=== PATIENT | female | born 1995 | race Caucasian/White ===

== ENCOUNTER → 2018-02-20 08:31 | Outpatient (CLI) | payer OTHER, SELFPAY ==
[2018-02-20 10:43] LABS: ALB/GLOB Ratio 1.1 RATIO (0.9-2.4); AST(SGOT) 23 U/L (15-37); Alanine Aminotransfer ALT/SGPT 42 U/L (13-56); Albumin, Serum 3.8 g/dL (3.2-5.0); Alkaline Phosphatase 67 U/L (45-117); Anion Gap 7 (5-15); BUN 10 mg/dL (7-18); BUN/Creat Ratio 13.4 RATIO (10-20); Calcium,Total 8.8 mg/dL (8.5-10.1); Chloride 104 mmol/L (98-107); Creatinine, Serum 0.75 mg/dL (0.55-1.02); EST Glomerular Filtration Rate 104 mL/min (>60); Est Glom Filt Rate - Afr Amer 126 mL/min (>60); Globulin 3.5 g/dL (2.2-4.2); Glucose 90 mg/dL (74-106); Potassium 3.9 mmol/L (3.5-5.1); Protein, Total 7.3 g/dL (6.4-8.2); Sodium Level 139 mmol/L (136-145)
[2018-02-20 12:38] LABS: Hematocrit 45.6 % (37-47); Hemoglobin 15.1 g/dl (12.0-15.0); Mean Corp Hgb Conc 33.1 g/gl (32-36); Mean Corpuscular Hgb 29.8 pg (27.0-32.0); Mean Corpuscular Volume 89.9 fL (81-99); Mean Platelet Vol. 10.8 fl (6.2-12.0); Platelet Count 274 K/mm3 (150-450); RBC Distribution Width CV 12.6 % (11.6-14.6); RBC Distribution Width SD 40.6 fl (35.1-43.9); Red Blood Count 5.07 M/mm3 (4.2-5.4); White Blood Count 5.6 K/mm3 (4.4-11.0)
[2018-02-20 12:46] LABS: Scan Indicated on CBC? Y/N NO
[2018-02-26 14:07] LABS: HEPATITIS B SURFACE AG Negative (Negative); Hepatitis A AB, Total Positive (Negative); Hepatitis A IgM Antibody Negative (Negative); Hepatitis B Core AB IgM Negative (Negative); Hepatitis B Core Ab Total Negative (Negative); Hepatitis C Ab 0.1 s/co ratio (0.0-0.9); QNTFERON TB Ag Minus Nil Value 0 IU/mL (.); QNTFERON TB Ag Value 0.05 IU/mL (.); QNTFERON TB Mitogen Value > 10.00 IU/mL (.); QNTFERON TB Nil Value 0.05 IU/mL (.)
[2018-02-26 14:55] LABS: Hep B Surface Antibodies Non Reactive (.); QNTIFERON TB Gold Negative (Negative)
== END ==
PROVIDERS: Family Provider Family Medicine; PCP Family Medicine; Visit Provider Dermatology Pediatric Dermatology
DX: L40.0 Psoriasis vulgaris (principal)
CPT/HCPCS: 36415; 80053; 85027; 86480; 86704; 86705; 86706; 86708; 86709; 86803; 87340

== ENCOUNTER → 2018-02-28 09:04 | Outpatient (CLI) | payer OTHER, SELFPAY ==
[2018-03-01 16:07] LABS: t-Transglutaminase IgA <2 U/mL (0-3)
== END ==
PROVIDERS: Visit Provider Dermatology Pediatric Dermatology
DX: L40.0 Psoriasis vulgaris (principal); D22.5 Melanocytic nevi of trunk; Z79.899 Other long term (current) drug therapy
CPT/HCPCS: 36415; 83516

== ENCOUNTER → 2018-06-13 08:48 | Outpatient (CLI) | payer OTHER, SELFPAY | PROVIDERS: Family Provider Family Medicine; PCP Family Medicine; Visit Provider Obstetrics & Gynecology | DX: J03.00 Acute streptococcal tonsillitis, unspecified (principal) | CPT/HCPCS: 87880 ==

== ENCOUNTER → 2018-10-01 08:57 | Outpatient (CLI) | payer OTHER, SELFPAY ==
[2018-07-26 16:10] VITALS: BMI 22.6
[2018-10-01 10:40] LABS: Erythrocyte Sedimentation Rate 2 mm/hr (0-20)
[2018-10-01 10:43] LABS: Absolute Lymphocyte Count 1.84 X10^3/ul (0.83-4.51); Absolute Neutrophil Count 4.4 X10^3/uL (2.0-7.7); Basophil# 0.02 X10^3/uL; Basophil% 0.3 % (0-1); Eosinophil# 0.07 X10^3/uL; Hematocrit 43.6 % (37-47); Hemoglobin 14.3 g/dl (12.0-15.0); Lymphocyte # 1.84 X10^3/ul (4.0); Lymphocyte % 27.4 % (19-41); Mean Corp Hgb Conc 32.8 g/gl (32-36); Mean Corpuscular Hgb 29.8 pg (27.0-32.0); Mean Corpuscular Volume 90.8 fL (81-99); Mean Platelet Vol. 10.6 fl (6.2-12.0); Neutrophil # 4.38 X10^3/uL (2.7-7.7); Neutrophil % 65.2 % (47-70); POSITIVE COUNT NO; POSITIVE DIFFERENTIAL NO; POSITIVE MORPHOLOGY NO; Platelet Count 251 K/mm3 (150-450); RBC Distribution Width CV 12.2 % (11.6-14.6); RBC Distribution Width SD 40.9 fl (35.1-43.9); White Blood Count 6.7 K/mm3 (4.4-11.0)
[2018-10-01 11:06] LABS: ALB/GLOB Ratio 1.3 RATIO (0.9-2.4); AST(SGOT) 21 U/L (15-37); Alanine Aminotransfer ALT/SGPT 30 U/L (13-56); Albumin, Serum 3.9 g/dL (3.2-5.0); Alkaline Phosphatase 80 U/L (45-117); Anion Gap 10 (5-15); BUN 6 mg/dL (7-18); BUN/Creat Ratio 8.2 RATIO (10-20); Calcium,Total 8.6 mg/dL (8.5-10.1); Chloride 103 mmol/L (98-107); Creatinine, Serum 0.73 mg/dL (0.55-1.02); EST Glomerular Filtration Rate 106 mL/min (>60); Est Glom Filt Rate - Afr Amer 128 mL/min (>60); Glucose 92 mg/dL (74-106); Potassium 3.7 mmol/L (3.5-5.1); Protein, Total 6.9 g/dL (6.4-8.2); Sodium Level 141 mmol/L (136-145); Thyroid Stim Hormone (TSH) 0.69 uIU/mL (0.358-3.74)
[2018-10-02 20:07] LABS: Endomysial Antibody IgA Negative (Negative)
[2018-10-03 11:56] LABS: Deamidated Gliadin IgA 3 units (0-19); Deamidated Gliadin IgG 2 units (0-19)
[2018-10-03 11:57] LABS: Immunoglobulin A 131 mg/dL (87-352); t-Transglutaminase IgA <2 U/mL (0-3)
[2018-10-05 03:07] LABS: Alternaria alternata <0.10 kU/L (Class 0); Aspergillus fumigatus <0.10 kU/L (Class 0); Bahia Grass <0.10 kU/L (Class 0); Bermuda Grass <0.10 kU/L (Class 0); Bluegrass, Kentucky <0.10 kU/L (Class 0); Cat Hair/Dander, Standard <0.10 kU/L (Class 0); Cedar, Mountain <0.10 kU/L (Class 0); Cladosporium herbarum <0.10 kU/L (Class 0); Cockroach, American <0.10 kU/L (Class 0); D farinae Mite <0.10 kU/L (Class 0); D pteronyssinus <0.10 kU/L (Class 0); Dog Epithelia <0.10 kU/L (Class 0); Elm, American White <0.10 kU/L (Class 0); Hazelnut Tree <0.10 kU/L (Class 0); Hickory, White <0.10 kU/L (Class 0); Johnson Grass <0.10 kU/L (Class 0); Maple/Box Elder <0.10 kU/L (Class 0); Mucor racemosus <0.10 kU/L (Class 0); Mugwort <0.10 kU/L (Class 0); Mulberry, White <0.10 kU/L (Class 0); Oak, White <0.10 kU/L (Class 0); Penicillium chrysogen <0.10 kU/L (Class 0); Pigweed, Rough <0.10 kU/L (Class 0); Plantain, English <0.10 kU/L (Class 0); Ragweed, Short/Common <0.10 kU/L (Class 0); Sheep Sorrel(Dock) <0.10 kU/L (Class 0); Stemphylium herbarum <0.10 kU/L (Class 0); Sweet Gum <0.10 kU/L (Class 0); Sycamore, American <0.10 kU/L (Class 0)
[2018-10-05 08:23] LABS: Nettle <0.10 kU/L (Class 0)
== END ==
PROVIDERS: Family Provider Family Medicine; PCP Family Medicine; Visit Provider Family Medicine
DX: R10.9 Unspecified abdominal pain (principal)
CPT/HCPCS: 36415; 80053; 82784; 83516; 84443; 85025; 85652; 86003; 86255

== ENCOUNTER 2019-08-20 12:24 | Emergency (ER) | payer OTHER, SELFPAY ==
[2019-05-30 17:45] VITALS: BMI 22.6
[2019-08-20 12:26] VITALS: BP 149/106; PULSE 82; RESP 18; TEMP 36.4; O2SAT 98; BMI 26.1
--- NOTE | 2019-08-20 12:52 | CT_ITS ---
STUDY: CT BRAIN WITHOUT CONTRAST REASON FOR EXAM: Female, 23 years old. MIGRAINE X5 DAYS RADIATION DOSAGE (If Supplied By Facility): CTDIvol = ( 60.81 ) mGy, DLP = ( 1044.28 ) mGycm TECHNIQUE: Transaxial CT imaging of the brain was performed without administration of intravenous contrast material. Individualized dose optimization techniques were used for this CT. COMPARISON: No relevant priors. FINDINGS: Normal soft tissue structures. Normal calvarium. Normal size ventricles and extra-axial spaces for the patient''s age. Normal white matter tracts of the cerebral hemispheres. Normal basal ganglia and thalami. Normal brainstem. Normal cerebellum. There is no intracranial hemorrhage. There are no findings of an acute ischemic infarction. Minimal mucosal thickening of the posterior maxillary sinuses bilaterally. CT/Brain/Head without Contrast IMPRESSION: Normal unenhanced CT scan of the brain. Electronically Signed: Kurt Nance, at 13:33 EST , Service support ,
--- NOTE | 2019-08-20 12:54 | ED.DCSUM_ITS ---
- ER Visit Summary Date of Service: 08/20/19 Chief Complaint: Diffuse headache History of Present Illness: The patient is a 23 F history of anxiety and 2 prior concussions. States she is never had a CAT scan. States 5 days ago on Monday a gradual onset of a diffuse headache. States is over her entire head. Denies any fall or trauma. She is on no blood thinners. There is no family history of intracranial bleeds or aneurysms. This was not a thunderclap headache. She denies any fever, neck pain or sinus congestion or drainage. She lives with her boyfriend and he is not having headaches. There is no history of carbon monoxide exposure. She currently is not . Physical Examination: Young female no acute distress vital signs are stable afebrile. H EENT exam unremarkable. Pupils round react to light extra motions are intact. There is no frontal maxillary sinus tenderness. No facial droop. No signs of trauma. Normal speech. Neck nontender. No lymphadenopathy. Normal range of motion. No meningismus. Lungs clear to auscultation bilaterally. Heart regular rhythm no murmur. Abdomen soft nontender normal bowel sounds no peritoneal signs. Remedies moves all 4. Neurovascular intact. She has normal special educator strength bilaterally. Normal dorsi plantarflexion. Neurologic exam normal. NIH is 0. Fingertip to nose [id number] within normal limits. She got up walk to the door without any difficulty. No ataxia. Negative Romberg. Test Results: CAT scan of the brain shows no acute abnormality read by the radiologist and reviewed by me. Emergency Department Course and Treatment: Patient has acute headache in the last 5 days. Treated with IV Toradol, Benadryl, Phenergan and IV fluids. Repeat exam and 1426 patient's neuro exam remains normal. Her headache is almost completely resolved after medications. I discussed with her and her mom the CAT scan results and outpatient follow-up. Treatment Plan: Follow-up with your doctor. Fluids and rest. Tylenol and Motrin. Her primary care physician is also getting her a neurology evaluation. Disposition: Discharge Impression: Acute headache of uncertain etiology This note was generated with [employer] software. It may contain incorrect words, spelling, and punctuation that were not noted in review of the chart prior to signing ED Disposition - Plan for ED Patient: Referrals: Kishan Raymundo MD [Primary Care Provider] -
[2019-08-20] MEDS: 0.9% Normal Saline 1,000 ML 999 ML IV (13:04)
[2019-08-20] MEDS: proMETHazine 25 MG/ML Syringe 12.5 MG IV (13:04)
[2019-08-20] MEDS: Ketorolac 30 MG/ML Syringe IV (13:04)
[2019-08-20] MEDS: DiphenhydrAMINE 50 MG/ML Syringe 25 MG IV (13:05)
--- NOTE | 2019-08-20 14:36 | ED.DEP ---
ED Disposition - Plan for ED Patient: Disposition: Home or Assisted Living Instructions: HEADACHE, Unspecified Referrals: Kishan Raymundo MD [Primary Care Provider] - As Needed Additional Instructions: Follow-up with your neurology evaluation. If recurrent headaches use Tylenol and/or Motrin. Return to the emergency department if severe headache and unable to get improving. Or if you develop neurological symptoms such as weakness or problems with your speech. Today your CAT scan was read as normal. And you had a normal neurologic exam.
[2019-08-20 14:45] VITALS: BP 115/84; PULSE 73; RESP 16; O2SAT 98
--- NOTE | 2019-08-20 14:45 | ED.RN ---
REVIEWED D/C INSTRUCTIONS, FOLLOW UP CARE, AND S/S THAT WOULD WARRANT A RETURN TO THE ED WITH PT. PT VERBALIZED AN UNDERSTANDING AND DENIES FURTHER QUESTIONS FOR THIS RN. PT SKIN P/W/D, RESP EVEN AND UNLABORED, PT A&O X 3, NO DISTRESS NOTE.D PT AMBULATED OUT OF ED, GAIT STEADY.
== END 2019-08-20 14:47 | disposition home or self-care (01) ==
PROVIDERS: Emergency Provider Emergency Medicine; PCP Family Medicine
DX: R51 Headache (principal); F41.9 Anxiety disorder, unspecified
CPT/HCPCS: 70450; 96361; 96374; 96375; 99283; J7030; A4216

== ENCOUNTER → 2019-08-27 07:08 | Outpatient (CLI) | payer OTHER, SELFPAY ==
[2019-08-20 12:26] VITALS: BMI 26.1
--- NOTE | 2019-08-27 07:19 | MRI_ITS ---
STUDY: MRI BRAIN WITH AND WITHOUT CONTRAST REASON FOR EXAM: Female, 23 years old. papilledema, headache, vision changes x 1 1/2 wks TECHNIQUE: Standardized multiplanar fat and water weighted pulse sequences were obtained. IV Dotarem 13ml was administered for the contrast portion of the examination. COMPARISON: CT head 08/20/2019. FINDINGS: Normal size of the ventricles and extra-axial spaces for the patient''s age. Normal white matter tracts of the supratentorial brain. There is no evidence for recent intracranial ischemia or other cause of cytotoxic edema on diffusion weighted imaging (DWI). Normal T2* images of the brain without demonstrated susceptibility artifact. There is no demonstrated hemosiderin stain. Normal bilateral basal ganglia. Normal thalami. There is no extra-axial fluid accumulation. Normal flow voids within the major intracranial circulation suggesting patency by spin echo criteria. Normal venous enhancement. There is no enhancing intra-axial or extra-axial abnormality. Normal sella turcica, pituitary gland, infundibular stalk, optic chiasm and hypothalamus. Normal tectal plate and pineal gland. Normal midbrain, rinku and medulla. Normal cerebellum. Normal basal cisterns. Normal bilateral temporal bones. Normal bilateral internal auditory canals. No demonstrated orbital abnormality, within the constraints of a routine brain study. There is no enhancing orbital pathology. Normal optic nerves and extraocular muscles. Normal visualized paranasal sinuses. Normal calvarium and skull base. Normal visualized soft tissue structures. Normal visualized upper cervical spine. MRI/Brain W/WO Contrast IMPRESSION: Normal unenhanced and enhanced MRI of the brain and orbits. Electronically Signed: Dinh Foley, at 15:46 EST Tel , Service support ,
== END ==
PROVIDERS: PCP Family Medicine
DX: H47.10 Unspecified papilledema (principal)
CPT/HCPCS: 70553; A9575

== ENCOUNTER 2019-08-27 18:51 | Emergency (ER) | payer OTHER, SELFPAY ==
[2019-08-27 18:51] VITALS: BP 131/91; PULSE 101; RESP 18; TEMP 37; O2SAT 95
[2019-08-27 18:52] VITALS: BP 131/91; PULSE 101; RESP 18; TEMP 37; O2SAT 95; BMI 25.9
--- NOTE | 2019-08-27 20:38 | CT_ITS ---
MADRID X 5 DAYS WITH VISUAL DISTURBANCES, PT HAD CT BRAIN ON THE AND MRI BRAIN TODAY BOTH NORMAL TECHNIQUE: Noncontrast axial images were obtained of the brain. Subsequently, routine carotid CT angiogram protocol was performed without and with IV contrast. In addition, images were obtained of the [place]. A radiation dose optimization technique was used for this scan. IV Contrast dosage and agent: 100mL Isovue-370 IV 100mL Isovue-370 COMPARISON: MR brain 08/27/[address] 08/20/2019 FINDINGS: --CT BRAIN without contrast Stable exam. Normal ventricles. Normal pineda-white matter differentiation. No intracranial mass, hemorrhage, or acute parenchymal abnormality. No suspicious extra-axial fluid collection. --CTA NECK: AORTIC ARCH AND BRANCHES: Normal anatomy, patent. RIGHT CCA: No occlusion, significant stenosis or dissection. RIGHT ICA: No occlusion, significant stenosis or dissection. LEFT CCA: No occlusion, significant stenosis or dissection. LEFT ICA: No occlusion, significant stenosis or dissection. RIGHT VERTEBRAL ARTERY: No occlusion, significant stenosis or dissection. LEFT VERTEBRAL ARTERY: No occlusion, significant stenosis or dissection. NECK SOFT TISSUES: Negative --CTA HEAD: Normal flow and patency of the vertebrobasilar and carotid systems. Normal bilateral filling of the anterior, middle, and posterior cerebral arteries. No arterial occlusion or arterial dissection. No evidence of intracranial aneurysm or vascular malformation. CT/CTA Head AND Neck W/ Contrast IMPRESSION: 1. Normal CTA bilateral carotids and bilateral vertebral arteries. 2. Normal CTA [place] and brain. No acute disease or intracranial aneurysm. Individualized dose optimization techniques were used for this CT. at 2324 Reported and signed by: Ronnie Talbot MD Electronically Signed: Ronnie Talbot, at 23:23 EST Tel , Service support ,
[2019-08-27 22:17] LABS: Absolute Lymphocyte Count 3.19 X10^3/uL (0.83-4.51); Absolute Neutrophil Count 6.7 X10^3/uL (2.0-7.7); Basophil# 0.09 X10^3/uL; Basophil% 0.8 % (0-1); Eosinophil# 0.05 X10^3/uL; Eosinophils% 0.5 % (0-5); Hematocrit 42.7 % (37-47); Hemoglobin 14.1 g/dL (12.0-15.0); Lymphocyte # 3.19 X10^3/ul (4.0); Lymphocyte % 29.1 % (19-41); Mean Corpuscular Hgb 29.6 pg (27.0-32.0); Mean Corpuscular Volume 89.7 fL (81-99); Monocyte# 0.73 X10^3/uL; Monocyte% 6.6 % (0-10); NRBC Flagged by Analyzer 0 % (0-5); Neutrophil # 6.67 X10^3/uL (2.7-7.7); Neutrophil % 60.7 % (47-70); Platelet Count 186 K/mm3 (150-450); RBC Distribution Width CV 12.7 % (11.6-14.6); RBC Distribution Width SD 41.1 fl (35.1-43.9); Red Blood Count 4.76 M/mm3 (4.2-5.4)
[2019-08-27] MEDS: 0.9% Normal Saline 1,000 ML 999 ML IV (22:17)
[2019-08-27] MEDS: DiphenhydrAMINE 50 MG/ML Syringe 25 MG IV ×2 (22:20→22:54)
[2019-08-27] MEDS: Ketorolac 30 MG/ML Syringe IV (22:20)
[2019-08-27] MEDS: proCHLORPERazine 10 MG/2 ML Vial IV (22:20)
[2019-08-27 22:23] VITALS: BP 125/81; PULSE 72; RESP 18; O2SAT 97
[2019-08-27 22:30] LABS: Anion Gap 6 (5-15); BUN 14 mg/dL (7-18); Calcium,Total 8.5 mg/dL (8.5-10.1); Chloride 103 mmol/L (98-107); Creatinine, Serum 0.74 mg/dL (0.55-1.02); EST Glomerular Filtration Rate 104 mL/min (>60); Est Glom Filt Rate - Afr Amer 126 mL/min (>60); Estimated Creatinine Clearance 102.97 ml/min; Glucose 88 mg/dL (74-106); Potassium 3.3 mmol/L (3.5-5.1); Sodium Level 138 mmol/L (136-145)
[2019-08-27 22:39] LABS: Prothrombin Time (Protime)PT. 12.6 SECONDS (11.7-14.9)
--- NOTE | 2019-08-27 23:33 | ED.VIS.HA ---
History of Present Illness Chief Complaint: Headache Informant: Patient, Family Narrative: Patient is a 23-year-old female present with headaches. Patient is had headaches for the past 1/2 weeks continuously. Patient has had multiple visits to the ER, her PCP and her industrial health and safety professor. Patient has received a migraine cocktail which did improve her symptoms. Her industrial health and safety professor saw papilledema and ordered an MRI of her head. This was negative. She had negative CT without contrast per the ER. Her industrial health and safety professor was concerned about possible pseudotumor cerebri. Patient is on immunosuppressant for psoriasis. She is also currently on a prednisone taper as well as her venlafaxine and BuSpar. She describes her headache as throbbing and diffuse. I does not seem to be affected by position or light. She feels a whooshing noise in her ears. She has associated nausea with no vomiting. She not had any associated fever or neck pain. She sometimes her vision is blurry and she does see spots. She has also been prescribed sumatriptan does not help. She has appointment to see Dr. Caceres, neurology on October 01. She is presenting with her mother because they do not know what else to do and she is continued to be disabled from her headaches. Past Medical History - Allergies and Home Meds Allergies/Adverse Reactions: Allergies dupilumab [From [facility]] Allergy (Mild, Verified 08/20/19 12:29) [facility] Primary Care Physician: Kishan Raymundo MD [Primary Care Provider] - Past Medical History: - - Depression Surgical History: noncontributory Smoking Status: Never smoker Review of Systems General: Denies: Chills, Fever, Sweats Eyes: Denies: Visual changes - bilaterally, Diplopia ENT: Denies: Rhinorrhea, Sore throat Cardiovascular: Denies: Chest pain, Palpitations Respiratory: Denies: Dyspnea, Cough, Dyspnea on exertion Gastrointestinal: Denies: Abdominal pain, Nausea, Vomiting, Diarrhea, Melena, Hematochezia Genitourinary: Denies: Dysuria, Hematuria, Frequency Musculoskeletal: Denies: Back pain, Extremity Pain Skin: Denies: Rash, Wounds Neurological: Reports: Headache. Denies: Weakness, Numbness Physical Exam Vital Signs/Narrative: Vital Signs Pulse Resp BP Pulse Ox 08/27/19 22:23 72 18 125/81 H 97 Inital Vital Signs reviewed: Yes General: Well nourished, Well developed Head: NC, AT Eyes: Perrl, EOMI ENT: Moist mucous membranes, No rhinorrhea, TM's clear Neck: Supple, No Lymphadenopathy, No JVD, Nontender, No Meningismus Cardiovascular: Regular rate, Regular rhythm, No murmurs Respiratory: No distress, CTA bilaterally, Chest nontender Abdomen: Soft, Nontender, Nondistended, Normal bowel sounds Back: Nontender, Normal Inspection Extremities: Nontender, No edema Skin: Normal color, No rash Neuro: Alert, Oriented x3, Cranial nerves II-XII grossly intact, Normal Strength, Normal Sensation, Normal DTR, Normal Gait Psychological: Normal affect Diagnostic/Tx/Re-eval Clinical Impression(s) from Imaging Studies Head/Neck CTA 08/27/19 20:38 IMPRESSION: 1. Normal CTA bilateral carotids and bilateral vertebral arteries. 2. Normal CTA [place] and brain. No acute disease or intracranial aneurysm. Individualized dose optimization techniques were used for this CT. at 2324 Reported and signed by: Ronnie Talbot MD Electronically Signed: Ronnie Talbot, at 23:23 EST Tel , Service support , Laboratory Data 08/27/19 08/27/19 08/27/19 22:04 22:04 22:20 WBC 11.0 RBC 4.76 Hgb 14.1 Hct 42.7 MCV 89.7 MCH 29.6 MCHC 33.0 RDW Std Deviation 41.1 RDW Coeff of Cynthia 12.7 Plt Count 186 MPV 10.0 Immature Gran % (Auto) 2.300 H Neut % (Auto) 60.7 Lymph % (Auto) 29.1 [place] % (Auto) 6.6 Eos % (Auto) 0.5 Baso % (Auto) 0.8 Absolute Neuts (auto) 6.7 Absolute Lymphs (auto) 3.19 Nucleated RBC % 0 PT 12.6 INR 1.0 Sodium 138 Potassium 3.3 L Chloride 103 Carbon Dioxide 29.0 Anion Gap 6 BUN 14 Creatinine 0.74 Estim Creat Clear Calc 102.97 Est GFR (MDRD) Af Amer 126 Est GFR (MDRD) Non-Af 104 BUN/Creatinine Ratio 19.0 Glucose 88 Calcium 8.5 - Medical Decision Making Patient is evaluated for recurrent headache. Has been going on for the past 1-1/2 weeks. Patient does complain of some intermittent vision changes. She had a normal MRI and CT without contrast. She has had reported papilledema on her ophthalmologic exam. Patient is a normal neurologic exam for me. She is hemodynamically stable. Patient does not had evaluation of her head and neck arteries I did order a CTA for looking for further cause of her headache and possible aneurysm. This was negative. Patient is already had an MRI with contrast. We do not have a protocol for CT venogram but I feel like an MRI with contrast should have essentially ruled out dural venous thrombosis is another cause of her headaches. There was a delay in obtaining IV access because patient was a difficult stick. Ultimately I had to perform an ultrasound-guided IV. Patient tolerated this well. She is treated with Compazine and Benadryl. Patient has a cough of acutely anxious for going over a CT of not sure if this is a side effect of the Compazine or just anxiety. She is given an additional 25 mg of Benadryl and has improvement. CTA is grossly normal. On reevaluation patient is feeling much improved. She states her headache is down to 2. She is given a dose of IV valproic acid for further headache relief. She is counseled that at this time I do not think an LP is emergently indicated. I do not suspect meningitis at this time. I think further evaluation for pseudotumor cerebri would be more appropriate with neurology. Patient has appointment to see a new neurologist in 2 days. Patient is otherwise well-appearing I do think she is stable for further outpatient evaluation. Patient is counseled on signs and symptoms requiring return to the emergency room. Patient verbalizes agreement and understand this plan. Patient discharged home in stable and improved condition. ED Disposition - Plan for ED Patient: Disposition: Home or Assisted Living Diagnosis: Headache Instructions: HEADACHE, Unspecified Referrals: Kishan Raymundo MD [Primary Care Provider] - Additional Instructions: Your work-up was normal today. I cannot find an emergent cause of your headache. I do encourage you to continue follow-up with neurology for further evaluation of this.
[2019-08-28] VITALS: BP 117/82; PULSE 86; RESP 16; O2SAT 96
== END 2019-08-28 01:16 | disposition home or self-care (01) ==
PROVIDERS: Emergency Provider Emergency Medicine; PCP Family Medicine
DX: R51 Headache (principal); F32.9 Major depressive disorder, single episode, unspecified
CPT/HCPCS: 70496; 70498; 80048; 85025; 85610; 96361; 96365; 96375; 99285; J7030; Q9967; A4216

== ENCOUNTER → 2019-09-12 07:24 | Outpatient (CLI) | payer OTHER, SELFPAY ==
[2019-09-05 11:53] VITALS: BMI 25.6
--- NOTE | 2019-09-12 07:26 | MRI_ITS ---
STUDY: EXAMINATION - MRV BRAIN WITHOUT CONTRAST REASON FOR EXAM: Female, 23 years old. HEADACHE, BENIGN INTRACRANIAL HYPERTENSION TECHNIQUE: 3D qwxm-vs-itjlso (TOF) imaging was performed in a 1.5 humberto MRI scanner. COMPARISON: None. FINDINGS: Normal flow within the superior sagittal sinus. Normal flow within the superficial cortical veins. Normal flow within the paired internal cerebral veins, vein of [place] and straight sinus. The superior sagittal sinus primarily drains into the right transverse sinus. The straight sinus drains primarily into the left transverse sinus. There is signal loss within the distal aspect of the transverse sinuses bilaterally worrisome for venous sinus stenosis seen in idiopathic intracranial hypertension (pseudotumor cerebra) (. Normal flow within the bilateral jugular bulbs. MRI/MRV Head Without Contrast IMPRESSION: Suspect venous sinus stenosis of the distal transverse sinuses bilaterally seen in idiopathic intracranial hypertension (pseudotumor cerebri). Electronically Signed: Gibran Quiroga MD at 8:41 EST Tel , Service support ,
== END ==
PROVIDERS: PCP Family Medicine; Referring Provider Psychiatry & Neurology Neurology; Visit Provider Psychiatry & Neurology Neurology
DX: G93.2 Benign intracranial hypertension (principal)
CPT/HCPCS: 70544

== ENCOUNTER → 2019-12-03 16:55 | Outpatient (CLI) | payer OTHER, SELFPAY ==
[2019-10-03 09:27] VITALS: BMI 25.6
[2019-12-03 17:28] LABS: Absolute Lymphocyte Count 1.81 X10^3/uL (0.83-4.51); Absolute Neutrophil Count 3.7 X10^3/uL (2.0-7.7); Basophil# 0.03 X10^3/uL; Basophil% 0.5 % (0-1); Eosinophils% 1.6 % (0-5); Hemoglobin 13.5 g/dL (12.0-15.0); Lymphocyte # 1.81 X10^3/ul (4.0); Lymphocyte % 29.8 % (19-41); Mean Corp Hgb Conc 33.8 g/dL (32-36); Mean Corpuscular Hgb 29.7 pg (27.0-32.0); Mean Corpuscular Volume 87.9 fL (81-99); Mean Platelet Vol. 10.8 fl (6.2-12.0); Monocyte# 0.38 X10^3/uL; Monocyte% 6.3 % (0-10); NRBC Flagged by Analyzer 0 % (0-5); Neutrophil # 3.73 X10^3/uL (2.7-7.7); Neutrophil % 61.5 % (47-70); Platelet Count 253 K/mm3 (150-450); RBC Distribution Width CV 12.8 % (11.6-14.6); Red Blood Count 4.55 M/mm3 (4.2-5.4); White Blood Count 6.1 K/mm3 (4.4-11.0)
[2019-12-03 18:00] LABS: Erythrocyte Sedimentation Rate 2 mm/hr (0-20)
[2019-12-03 18:34] LABS: ALB/GLOB Ratio 1.3 RATIO (0.9-2.4); AST(SGOT) 32 U/L (15-37); Alanine Aminotransfer ALT/SGPT 53 U/L (13-56); Albumin, Serum 3.8 g/dL (3.2-5.0); Alkaline Phosphatase 65 U/L (45-117); Anion Gap 11 (5-15); BUN 9 mg/dL (7-18); BUN/Creat Ratio 13.3 RATIO (10-20); Calcium,Total 8.6 mg/dL (8.5-10.1); Chloride 107 mmol/L (98-107); Creatinine, Serum 0.68 mg/dL (0.55-1.02); EST Glomerular Filtration Rate 114 mL/min (>60); Est Glom Filt Rate - Afr Amer 138 mL/min (>60); Glucose 93 mg/dL (74-106); Potassium 2.8 mmol/L (3.5-5.1); Protein, Total 6.8 g/dL (6.4-8.2); Sodium Level 139 mmol/L (136-145)
[2019-12-05 16:07] LABS: Endomysial Antibody IgA Negative (Negative)
[2019-12-06 00:44] LABS: Deamidated Gliadin IgA 2 units (0-19); Deamidated Gliadin IgG 2 units (0-19); Immunoglobulin A 101 mg/dL (87-352); t-Transglutaminase IgA <2 U/mL (0-3)
[2019-12-06 20:07] LABS: Beef <0.10 kU/L (Class 0); Corn <0.10 kU/L (Class 0); Egg, Whole <0.10 kU/L (Class 0); Milk (Cow) <0.10 kU/L (Class 0); Peanut <0.10 kU/L (Class 0); Pork <0.10 kU/L (Class 0); Soybean <0.10 kU/L (Class 0); Wheat <0.10 kU/L (Class 0)
[2019-12-06 20:34] LABS: Chocolate <0.10 kU/L (Class 0)
== END ==
LOC: LAB.FUTURE 16:56 → LAB 12-04 08:55
PROVIDERS: PCP Family Medicine; Visit Provider Family Medicine
DX: R19.7 Diarrhea, unspecified (principal)
CPT/HCPCS: 36415; 80053; 82784; 83516; 85025; 85652; 86003; 86005; 86255

== ENCOUNTER → 2019-12-05 | Outpatient (CLI) | payer OTHER, SELFPAY ==
[2019-10-03 09:27] VITALS: BMI 25.6
== END | disposition home or self-care (01) ==
LOC: LABSPEC 08:56
PROVIDERS: PCP Family Medicine; Visit Provider Family Medicine
DX: R19.7 Diarrhea, unspecified (principal)
CPT/HCPCS: 82274; 83630; 87177; 87209; 87493

== ENCOUNTER → 2019-12-11 10:01 | Outpatient (CLI) | payer OTHER, SELFPAY ==
[2019-10-03 09:27] VITALS: BMI 25.6
[2019-12-11 12:23] LABS: Anion Gap 9 (5-15); BUN 6 mg/dL (7-18); BUN/Creat Ratio 7.9 RATIO (10-20); Calcium,Total 8.5 mg/dL (8.5-10.1); Chloride 109 mmol/L (98-107); Creatinine, Serum 0.76 mg/dL (0.55-1.02); EST Glomerular Filtration Rate 101 mL/min (>60); Est Glom Filt Rate - Afr Amer 122 mL/min (>60); Glucose 80 mg/dL (74-106); Potassium 3.8 mmol/L (3.5-5.1); Sodium Level 140 mmol/L (136-145)
== END ==
PROVIDERS: PCP Family Medicine; Visit Provider Family Medicine
DX: E87.6 Hypokalemia (principal)
CPT/HCPCS: 80048

== ENCOUNTER → 2020-01-23 | Outpatient (CLI) | payer OTHER, SELFPAY ==
[2019-12-19 08:44] VITALS: BMI 25.6
== END | disposition home or self-care (01) ==
PROVIDERS: PCP Family Medicine; Visit Provider Obstetrics & Gynecology
DX: Z20.828 Contact with and (suspected) exposure to other viral communicable diseases (principal)
CPT/HCPCS: 87635; G2023; U0003

== ENCOUNTER → 2020-02-14 13:50 | Outpatient (CLI) | payer OTHER, SELFPAY ==
[2020-02-12 17:17] VITALS: BMI 25.6
[2020-02-14 15:51] LABS: Absolute Lymphocyte Count 1.68 X10^3/uL (0.83-4.51); Absolute Neutrophil Count 4.4 X10^3/uL (2.0-7.7); Basophil# 0.04 X10^3/uL; Basophil% 0.6 % (0-1); Eosinophil# 0.05 X10^3/uL; Eosinophils% 0.8 % (0-5); Hematocrit 43.2 % (37-47); Hemoglobin 14.3 g/dL (12.0-15.0); Lymphocyte # 1.68 X10^3/ul (4.0); Lymphocyte % 25.7 % (19-41); Mean Corp Hgb Conc 33.1 g/dL (32-36); Mean Corpuscular Volume 90.6 fL (81-99); Mean Platelet Vol. 11.2 fl (6.2-12.0); Monocyte% 6.1 % (0-10); NRBC Flagged by Analyzer 0 % (0-5); Neutrophil # 4.35 X10^3/uL (2.7-7.7); Neutrophil % 66.5 % (47-70); Platelet Count 243 K/mm3 (150-450); RBC Distribution Width CV 12.6 % (11.6-14.6); RBC Distribution Width SD 41.1 fl (35.1-43.9); Red Blood Count 4.77 M/mm3 (4.2-5.4); White Blood Count 6.5 K/mm3 (4.4-11.0)
[2020-02-14 16:20] LABS: ALB/GLOB Ratio 1.3 RATIO (0.9-2.4); AST(SGOT) 16 U/L (15-37); Alanine Aminotransfer ALT/SGPT 32 U/L (13-56); Alkaline Phosphatase 82 U/L (45-117); Anion Gap 5 (5-15); BUN 12 mg/dL (7-18); BUN/Creat Ratio 18.5 RATIO (10-20); Calcium,Total 8.5 mg/dL (8.5-10.1); Chloride 110 mmol/L (98-107); Creatinine, Serum 0.65 mg/dL (0.55-1.02); EST Glomerular Filtration Rate 120 mL/min (>60); Est Glom Filt Rate - Afr Amer 146 mL/min (>60); Glucose 88 mg/dL (74-106); Potassium 3.8 mmol/L (3.5-5.1); Sodium Level 139 mmol/L (136-145); T4 Total, Thyroxin 12.5 ug/dL (4.8-13.9); Thyroid Stim Hormone (TSH) 1.36 uIU/mL (0.358-3.74)
== END ==
PROVIDERS: PCP Internal Medicine; Visit Provider Internal Medicine
DX: K52.9 Noninfective gastroenteritis and colitis, unspecified (principal)
CPT/HCPCS: 80053; 84436; 84443; 85025

== ENCOUNTER → 2020-04-24 | Outpatient (CLI) | payer OTHER, SELFPAY ==
[2020-02-12 17:17] VITALS: BMI 25.6
--- NOTE | 2020-04-24 | IMM_PTH ---
PATIENT: PHAM RANDALL LOC: [facility] U#:[id number] AGE/SX: 24/F ROOM: RE04/24/[address]: Dr. Anthony Cortes MD : 1995 BED: DIS: 04/24/2020 SPEC #: [id number] RECD: 04/28/20 13:51 STATUS: HEIKE REKeshawn #: [id number] NOAH: 04/24/20 00:[address]: Anthony Cortes DEPT: IMMUNOHISTOCHEMISTRY RECD BY: Deb Garcia ENTERED: 04/28/20 13:52 SP TYPE: IMMUNO OTHR DR: Dr. Taylor Driscoll MD Tissues: A - Ileum, NOS Procedures: CD138 (add) CD20 (add) CD43 (add) CD45 (add) CD5 (add) CD79A (add) CD3 (initial) PHYSICIAN & INSTITUTION [place] [id number] SPECIMEN INFORMATION: Tissue Source: A - Terminal ileum Clinical Info: Abdominal pain, diarrhea Specimen Number: [id number] CPT code: 92993, 37332 x6 METHODOLOGY: Deparaffinized sections of prefer/formalin-fixed tissue or PAP/DQ stained slides are incubated with monoclonal/polyclonal antibodies/oligonucleotide probes. Localization is made via biotin free immunoperoxidase method. Appropriate controls are performed and reacted as expected. Results on target cell population are indicated in the following table: RESULTS: ANTIBODY / CLONE RESULT Block A CD3 (PS1) positive CD5 (SP10) positive CD20 (L26) positive CD43 (L60) positive CD45 (RP2/18) positive CD79a (11E3) positive CD138 (B-A38) negative These tests were developed and their performance characteristics determined by [facility]. They may not have been cleared or approved by the U.S. Food and Drug Administration. The FDA has determined that such clearance or approval is not necessary. The above immunohistochemical/dualISH markers are ordered and reviewed by the Pathologist. INTERPRETATION: A. Terminal ileum, biopsy: Polytypic, benign lymphoid aggregate. AM:sesar 04/29/20
--- NOTE | 2020-04-24 10:20 | COLBX_PTH ---
PATIENT: PHAM RANDALL LOC: [facility] U#:[id number] AGE/SX: 24/F ROOM: RE04/24/[address]: Dr. Anthony Cortes MD : 1995 BED: DIS: 04/24/2020 SPEC #: [id number] RECD: 04/24/20 15:12 STATUS: HEIKE JOSE #: [id number] NOAH: 04/24/20 10:[address]: Anthony Cortes DEPT: SURGICAL PATHOLOGY RECD BY: Amita Newell ENTERED: 04/27/20 07:21 SP TYPE: COLON BX OTHR DR: Dr. Taylor Driscoll MD [facility] Tissues: A - Ileum, NOS B - COLON BIOPSY Procedures: Surgery Specimen Level IV HEADER OPERATION: Colonoscopy with biopsies PRE-OP DIAGNOSIS: Abdominal pain, diarrhea; rule out Crohn's TISSUE SUBMITTED: A - Terminal ileum, B - Right and left colon MICROSCOPIC DIAGNOSIS A. Terminal ileum, biopsy: Prominent benign lymphoid aggregates. No evidence of ileitis. See comment. B. Right and left colon, biopsies: No pathologic change. AM:sesar 04/28/20 COMMENT A. Immunohistochemistry ([id number]) supports the above diagnosis. MICROSCOPIC DESCRIPTION Slides are reviewed. GROSS DESCRIPTION A - Received in fixative is one container labeled with the patient's name and designated terminal ileum. The specimen consists of two multiple fragments of light perez soft tissue that in aggregate measure 0.6 x 0.6 x 0.1 cm. The specimen is totally submitted in one cassette. B - Received in fixative is one container labeled with the patient's name and designated right and left colon. The specimen consists of multiple irregular fragments of light perez soft tissue that in aggregate measure 1 x 0.8 x 0.1 cm. The specimen is totally submitted in one cassette. / AM:sesar 04/27/20 TC:5 CPT: 11713 x2
== END | disposition home or self-care (01) ==
LOC: LABSPEC 15:26
PROVIDERS: PCP Internal Medicine; Referring Provider Internal Medicine Gastroenterology; Visit Provider Internal Medicine Gastroenterology
DX: R10.9 Unspecified abdominal pain (principal); R19.7 Diarrhea, unspecified
CPT/HCPCS: 88305; 88341; 88342

== ENCOUNTER 2020-07-05 18:35 | Emergency (ER) | payer OTHER, SELFPAY ==
[2020-07-05 18:36] VITALS: BP 129/91; PULSE 118; RESP 18; TEMP 36.4; O2SAT 97; BMI 25.1
[2020-07-05 18:48] VITALS: BP 124/82
--- NOTE | 2020-07-05 19:08 | ED.DCSUM_ITS ---
History of Present Illness Chief Complaint: Headache Informant: Patient Narrative: 24-year-old female presenting with headache for the last several days. She spoke to Dr. Avednano neurologist who started her back on Diamox. She has been taking this for the week but states she has not had significant improvement of her headache. He states he has in the past discussed with her about getting a shunt however she states that he was unclear what the etiology of her headaches were and may be control and some narrowing of vessels in her brain were possibly the source 2. She claims to see spots in her vision but otherwise her vision is clear. She is not dizzy. She has no numbness or tingling her extremities. Prior similar symptoms: Yes Recent Illness/Hospitalization: No - Past Medical History (1) IBS (irritable bowel syndrome) Status: Chronic (2) Pseudotumor cerebri Status: Chronic Past Medical History - Allergies and Home Meds Allergies/Adverse Reactions: Allergies dupilumab [From [facility]] Allergy (Mild, Verified 07/05/20 18:36) HIVES Primary Care Physician: Taylor Driscoll MD [Primary Care Provider] - Prior records reviewed: Yes Past Medical History: None - Reviewed in problem list Surgical History: noncontributory Lives: Alone Smoking Status: Never smoker Alcohol: None Drugs: None Review of Systems General: Denies: Chills, Fever, Sweats Eyes: Reports: - - Intermittent spotting in vision. ENT: Denies: Rhinorrhea, Sore throat Cardiovascular: Denies: Chest pain, Palpitations Respiratory: Denies: Dyspnea, Cough, Dyspnea on exertion Gastrointestinal: Denies: Abdominal pain, Nausea, Vomiting, Diarrhea, Melena, Hematochezia Genitourinary: Denies: Dysuria, Hematuria, Frequency Musculoskeletal: Denies: Back pain, Extremity Pain Skin: Denies: Rash, Wounds Neurological: Reports: Headache. Denies: Parasthesia, Numbness Psych: Denies: Depression, Anxiety, Suicidal thoughts, Suicidal ideations, -, - Physical Exam Vital Signs/Narrative: Vital Signs Temp Pulse Resp BP Pulse Ox 07/05/20 18:48 124/82 H 07/05/20 18:36 97.6 F L 118 H 18 129/91 H 97 Inital Vital Signs reviewed: Yes General: Well nourished, Well developed, No Acute Distress Head: Normocephalic, Atraumatic Eyes: Perrl, EOMI ENT: Moist mucous membranes, No rhinorrhea Cardiovascular: Regular rate, Regular rhythm Respiratory: No distress, CTA bilaterally Abdomen: Soft, Nontender, Nondistended Skin: Normal color, No rash. Negative for: Cyanosis, Diaphoresis Neurological: Alert, Oriented x3 Psychological: Normal affect, Normal Mood Diagnostic/Tx/Re-eval - Medical Decision Making 23-year-old female presenting with headache typical of her pseudotumor cerebri. I spoke with her neurologist Dr. Avendano. He recommended that she double her Diamox to 500 twice a day. He recommended to give her Zofran for home because she had nausea the last time she was on the high of a dose. This was provided. Patient was given 10 mg of Reglan, 15 of Toradol, 25 of Benadryl and her headache is down to a 2. Her neurologist recommended to give her another dose of Toradol and I did. She feels comfortable with this plan. She will follow up on Monday with he will do an occipital nerve block. Patient is given return precautions. Impression: 1. Headache 2. History of pseudotumor cerebri ED Disposition - Plan for ED Patient: Disposition: Home or Assisted Living Instructions: ED Headache Unspecified Prescriptions: Ondansetron [Zofran Odt] 4 mg PO Q8H PRN PRN #20 tab PRN Reason: Nausea Transmission Status: Pending to [facility]/pharmacy #[id number] Referrals: Taylor Driscoll MD [Primary Care Provider] -
[2020-07-05] MEDS: DiphenhydrAMINE 50 MG/ML Syringe 25 MG IV (19:24)
[2020-07-05] MEDS: Ketorolac 15 MG/ML Vial IV (19:25)
[2020-07-05] MEDS: Metoclopramide 10 MG/2 ML Vial IV (19:28)
[2020-07-05] MEDS: Ketorolac 15 MG/ML Vial IM (20:28)
[2020-07-05 20:34] VITALS: BP 115/64; PULSE 100; RESP 17; O2SAT 97
== END 2020-07-05 20:34 | disposition home or self-care (01) ==
PROVIDERS: Emergency Provider Student in an Organized Health Care Education/Training Program; PCP Internal Medicine
DX: G93.2 Benign intracranial hypertension (principal); K58.9 Irritable bowel syndrome, unspecified
CPT/HCPCS: 96372; 96374; 96375; 96376; 99283; A4216

== ENCOUNTER → 2020-07-28 14:32 | Outpatient (CLI) | payer OTHER, SELFPAY ==
[2020-07-14 11:52] VITALS: BMI 25.4
[2020-07-28 15:56] LABS: Anion Gap 8 (5-15); BUN 6 mg/dL (7-18); BUN/Creat Ratio 7.1 RATIO (10-20); Calcium,Total 8.6 mg/dL (8.5-10.1); Chloride 112 mmol/L (98-107); Creatinine, Serum 0.84 mg/dL (0.55-1.02); EST Glomerular Filtration Rate 89 mL/min (>60); Est Glom Filt Rate - Afr Amer 107 mL/min (>60); Glucose 87 mg/dL (74-106); Potassium 3.4 mmol/L (3.5-5.1); Sodium Level 141 mmol/L (136-145)
== END ==
LOC: WOBLAB 14:35
PROVIDERS: Nurse Practitioner Family; PCP Internal Medicine; Visit Provider Psychiatry & Neurology Neurology
DX: G93.2 Benign intracranial hypertension (principal); E87.6 Hypokalemia
CPT/HCPCS: 36415; 80048

== ENCOUNTER 2021-09-15 15:13 | Outpatient (CLI) | payer OTHER, SELFPAY ==
[2021-09-22 14:27] LABS: HPV Reflexed? NOT INDICATED
[2021-09-25 21:07] LABS: Chlamydia By Nucleic Acid AMP Negative (Negative); Gonococcus By Nucleic Acid AMP Negative (Negative)
== END 2021-09-15 23:59 | disposition home or self-care (01) ==
PROVIDERS: PCP Internal Medicine; Visit Provider Obstetrics & Gynecology
DX: Z12.4 Encounter for screening for malignant neoplasm of cervix (principal); Z11.3 Encounter for screening for infections with a predominantly sexual mode of transmission
CPT/HCPCS: 87491; 87591; 88175; G0145

== ENCOUNTER → 2021-11-19 | Outpatient (CLI) | payer OTHER, SELFPAY ==
[2021-11-19 13:35] LABS: Progesterone Level 13.66 ng/mL (See Comment); T3 Total - Triiodothyronine 1.48 ng/mL (0.6-1.81)
[2021-11-19 13:41] LABS: Free T3 2.7 pg/mL (2.18-3.98); T4 Free Direct 0.87 ng/dL (0.76-1.46); Thyroid Stim Hormone (TSH) 1.03 uIU/mL (0.358-3.74)
[2021-11-27 15:24] LABS: T3 Reverse 16.6 ng/dL (9.2-24.1)
== END | disposition home or self-care (01) ==
LOC: WOBLAB 11:59
PROVIDERS: PCP Internal Medicine; Visit Provider Obstetrics & Gynecology
DX: E28.8 Other ovarian dysfunction (principal); E03.9 Hypothyroidism, unspecified; N92.0 Excessive and frequent menstruation with regular cycle
CPT/HCPCS: 36415; 84144; 84439; 84443; 84480; 84481; 84482

== ENCOUNTER → 2021-11-26 | Outpatient (CLI) | payer OTHER, SELFPAY ==
[2021-11-26 10:01] LABS: Glucose 75GTT - Fasting 108 mg/dL (70-99)
[2021-11-26 10:07] LABS: Insulin 75GTT - Fasting 18.3 mU/L (2.6-37.6)
[2021-11-26 11:01] LABS: Glucose 75GTT - 60 minutes 160 mg/dL (100-160)
[2021-11-26 11:03] LABS: Glucose 75GTT - 30 minutes 160 mg/dL (100-160)
[2021-11-26 11:18] LABS: Insulin 75GTT - 30 MIN 55.4 mU/L (Not Estab.)
[2021-11-26 11:19] LABS: Insulin 75GTT - 60 min 91.5 mU/L (Not Estab)
[2021-11-26 12:06] LABS: Glucose 75GTT - 120 minutes 116 mg/dL (70-140)
[2021-11-26 12:41] LABS: Insulin 75GTT - 120 min 54.1 mU/L (Not Estab.)
== END | disposition home or self-care (01) ==
LOC: WOBLAB 09:13
PROVIDERS: PCP Internal Medicine; Visit Provider Obstetrics & Gynecology
DX: Z13.1 Encounter for screening for diabetes mellitus (principal); R73.09 Other abnormal glucose
CPT/HCPCS: 36415; 82951; 82952; 83525

== ENCOUNTER → 2022-01-25 | Outpatient (CLI) | payer OTHER, SELFPAY ==
--- NOTE | 2022-01-25 07:54 | RAD_ITS ---
STUDY: HYSTEROSALPINGOGRAM. REASON FOR EXAM: Female, 26 years old. INFERTILITY FLUOROSCOPY TIME (if supplied): ( 17 seconds ) minutes/seconds. 2 images were obtained. TECHNIQUE: A hysterosalpingogram was performed by the charcoal unloader. Imaging was provided. COMPARISON: None. FINDINGS: The uterus is unremarkable. Both fallopian tubes are patent with spill. RAD/Salpingogram IMPRESSION: Normal hysterosalpingogram. Electronically Signed: Kurt Nance MD at 11:10 EDT ,
== END | disposition home or self-care (01) ==
LOC: RAD 07:52
PROVIDERS: PCP Internal Medicine; Referring Provider Obstetrics & Gynecology; Visit Provider Obstetrics & Gynecology
DX: N97.0 Female infertility associated with anovulation (principal)
CPT/HCPCS: 58340; 74740; Q9967

== ENCOUNTER → 2022-04-01 | Outpatient (CLI) | payer OTHER, SELFPAY ==
[2022-04-01 16:18] LABS: Absolute Lymphocyte Count 1.72 X10^3/uL (0.83-4.51); Absolute Neutrophil Count 4.3 X10^3/uL (2.0-7.7); Basophil# 0.03 X10^3/uL; Basophil% 0.4 % (0-1); Eosinophil# 0.39 X10^3/uL; Eosinophils% 5.7 % (0-5); Hemoglobin 13.7 g/dL (12.0-15.0); Lymphocyte # 1.72 X10^3/ul (0.83-4.51); Mean Corp Hgb Conc 33.4 g/dL (32-36); Mean Corpuscular Volume 86.7 fL (81-99); Mean Platelet Vol. 11.2 fl (6.2-12.0); Monocyte# 0.45 X10^3/uL; Monocyte% 6.5 % (0-10); NRBC Flagged by Analyzer 0 % (0-5); Neutrophil # 4.27 X10^3/uL (2.7-7.7); Neutrophil % 62.1 % (47-70); Platelet Count 279 K/mm3 (150-450); RBC Distribution Width CV 12.4 % (11.6-14.6); RBC Distribution Width SD 39.1 fl (35.1-43.9); Red Blood Count 4.73 M/mm3 (4.2-5.4); White Blood Count 6.9 K/mm3 (4.4-11.0)
[2022-04-01 16:40] LABS: ALB/GLOB Ratio 1.2 RATIO (0.9-2.4); AST(SGOT) 24 U/L (15-37); Alanine Aminotransfer ALT/SGPT 52 U/L (13-56); Albumin, Serum 3.8 g/dL (3.2-5.0); Alkaline Phosphatase 70 U/L (45-117); Anion Gap 8 (5-15); BUN 11 mg/dL (7-18); BUN/Creat Ratio 14.3 RATIO (10-20); Calcium,Total 9.2 mg/dL (8.5-10.1); Chloride 105 mmol/L (98-107); Cholesterol 195 mg/dL (200); Creatinine, Serum 0.77 mg/dL (0.55-1.02); EST Glomerular Filtration Rate 97 mL/min (>60); Est Glom Filt Rate - Afr Amer 118 mL/min (>60); Globulin 3.3 g/dL (2.2-4.2); Glucose 119 mg/dL (74-106); High Density Lipoprotein 43 mg/dL; Protein, Total 7.1 g/dL (6.4-8.2); Sodium Level 137 mmol/L (136-145); Thyroid Stim Hormone (TSH) 0.92 uIU/mL (0.358-3.74); Triglycerides 263 mg/dL; Very Low Density Lipoprotein 53 mg/dL (5-40)
== END | disposition home or self-care (01) ==
LOC: WOBLAB 14:42
PROVIDERS: PCP Internal Medicine; Visit Provider Physician Assistant
DX: Z00.00 Encounter for general adult medical examination without abnormal findings (principal)
CPT/HCPCS: 36415; 80053; 80061; 84443; 85025